=== PATIENT | male | born 1980 | race African-American/Black ===

== ENCOUNTER 2023-01-23 15:29 | Emergency (ER) | payer MEDICAID, SELFPAY ==
[2023-01-23 15:28] VITALS: BP 148/88; PULSE 63; RESP 16; TEMP 36.6; O2SAT 99
--- NOTE | 2023-01-23 15:36 | ECG_ITS ---
Measurements Intervals [place] Rate: 54 P: 51 VT: 137 QRS: 17 QRSD: 89 T: 31 QT: 436 QTc: 415 Interpretive Statements SINUS BRADYCARDIA BORDERLINE ECG NO PREVIOUS ECG AVAILABLE FOR COMPARISON Electronically Signed On 01-23-2023 16:10:03 CDT by Ryan Richard D.O.
[2023-01-23 16:40] LABS: Appearance Urine Clear (Clear); Bilirubin Urine Negative (Negative); Blood Urine Negative (Negative); Color Urine Yellow (Yellow); Glucose Urine UA Negative (Negative); Ketones Urine 1+ mg/dL (Negative); Leukocyte Esterase Ur Negative LEU/UL (Negative); Nitrate Urine Negative (Negative); Protein Urine Negative (Negative)
[2023-01-23 16:40] LABS: Basophils Percent Auto 0.6 % (0.2-1.2); Eosinophils Absolute Auto 0.1 K/mm3 (0-0.3); Eosinophils Percent Auto 1.3 % (0-4.4); Hematocrit 45.7 % (42.0-52.0); Immature Granulocyte Absolute 0.02 K/mm3 (0.00-0.031); Immature Granulocyte Percent A 0.3 % (0-0.5); Lymphocytes Absolute Auto 1.63 K/mm3 (0.9-3.2); Lymphocytes Percent Auto 22.9 % (18.3-44.2); Mean Corpuscular HGB Conc 32.8 g/dl (32-36); Mean Corpuscular Hemoglobin 31.9 pg (26-34); Mean Corpuscular Volume 97.2 fl (80-100); Mean Platelet Volume 9.2 fl (7.4-10.4); Monocytes Absolute Auto 0.5 K/mm3 (0.1-0.6); Monocytes Percent Auto 6.3 % (2.6-8.5); Neutrophils Absolute Auto 4.9 K/mm3 (1.3-6.7); Neutrophils Percent Auto 68.6 % (45.5-73.1); Platelet Count Result 278 k/mm3 (150-375); Red Cell Distribution Width 14.3 % (11.5-14.5); White Blood Count 7.1 K/mm3 (4.5-10.0)
[2023-01-23 16:49] LABS: Ethanol < 10 mg/dL (<10)
[2023-01-23 16:50] LABS: Add Urine Microscopic? NO
[2023-01-23 16:50] LABS: Alanine Aminotransferase 16 U/L (6-50); Albumin Level 4.4 g/dL (3.5-5.1); Alkaline Phosphatase 96 U/L (38-126); Anion Gap 3 mmol/L (8-16); Aspartate Amino Transferase 33 U/L (17-59); Bilirubin,Total 1.2 mg/dL (0.2-1.3); Blood Urea Nitrogen 15 mg/dL (9-20); Carbon Dioxide 30 mmol/L (22-30); Chloride 105 mmol/L (98-107); Estimated CRCL calculation 89 ml/min; Estimated Glomerular Filt Rate > 60; Glucose 83 mg/dL (65-110); Potassium 3.7 mmol/L (3.4-5.0); Sodium 138 mmol/L (137-145)
[2023-01-23 16:57] LABS: Amphetamine Screen Urine Negative (Negative); Barbiturate Screen Urine Negative (Negative); Benzodiazepines Screen Urine Negative (Negative); Cannabinoid Screen Urine Positive (Negative); Methadone Screen Urine Negative (Negative); Opiate Screen Urine Negative (Negative); Phencyclidine Screen Urine Negative (Negative)
[2023-01-23 17:07] LABS: Troponin I < 0.012 ng/mL (0.000-0.034)
[2023-01-23 17:10] LABS: Cocaine Screen Urine Positive (Negative)
[2023-01-23 17:15] LABS: Influenza A QL RT-PCR Negative (Negative); Influenza B QL RT-PCR Negative (Negative); RSV RNA, RT-PCR Negative (Negative); SARS-CoV-2 RNA PCR Negative (Negative)
--- NOTE | 2023-01-23 17:36 | ED.PSYCH ---
HPI - Psych General Chief Complaint: Psychiatric Symptoms Stated Complaint: SI Time Seen by Provider: 01/23/23 16:55 History of Present Illness HPI Narrative: Patient is a 42-year-old male presenting with suicidal ideation. Patient states that he has been struggling with a cocaine addiction for a while now. States that he always convinces himself that he will be able to quit but he has been unable to do so. States that he has been having thoughts of self-harm in the last several weeks due to his problems with addiction. States that he is finally heading a point that he feels like he needs help. States he has never been to rehab before. He denies current SI or HI. Denies hallucinations or paranoia. Denies further complaints. Related Data Allergies Allergy/AdvReac Type Severity Reaction Status Date / Time No Known Allergies Allergy Unknown Verified 01/23/23 15:33 Review of Systems Review of Systems: All systems reviewed & are unremarkable except as noted in HPI and below PMFSH Social History Social History Substance use type: marijuana and crack/cocaine Exam Narrative: GENERAL: Well-appearing, in no acute distress, pleasant and cooperative HEAD: Normocephalic, atraumatic. EYES: PERRLA and EOMI. ENT: Mucous membranes moist. NECK: Supple. CHEST: No respiratory distress. HEART: Regular rate and rhythm ABDOMEN: Nondistended EXTREMITIES: Normal range of motion. No edema. SKIN: Warm, dry, no rash. NEURO: No focal deficits. Alert and oriented x3. PSYCH: Intermittently tearful secondary to situation, no SI or HI Course Vital Signs Vital signs: Vital Signs Temperature 97.9 F 01/23/23 15:28 Pulse Rate 63 01/23/23 15:28 Respiratory Rate 16 01/23/23 15:28 Blood Pressure 148/88 H 01/23/23 15:28 Pulse Oximetry 99 01/23/23 15:28 Oxygen Delivery Room Air 01/23/23 15:28 Temperature 97.9 F 01/23/23 15:28 Pulse Rate 68 01/23/23 22:32 Respiratory Rate 18 01/23/23 22:32 Blood Pressure 128/78 01/23/23 22:32 Pulse Oximetry 100 01/23/23 22:32 Oxygen Delivery Room Air 01/23/23 15:28 MDM - Psych MDM Narrative Medical decision making narrative: Patient is a 42-year-old male presenting with suicidal ideation in the setting of ongoing cocaine use disorder. Vital stable. Exam remarkable for the above. Patient is currently denying SI and HI but he states that he would really like to get help for his addictions. Patient medically clear, crisis team called for evaluation. Patient is agreed with the safety plan, he will be going to rehab in the morning. He feels comfortable with this plan. Discharged in stable condition. Differential Diagnosis Differential diagnosis: Likely suicidal ideation, depression and other (Polysubstance use disorder) Medical Records Attestation: I reviewed the patient's medical records. Lab Data Attestation: I reviewed the patient's lab results. 01/23/23 16:29 01/23/23 16:29 Labs: Lab Results 01/23/23 01/23/23 Range/Units 16:29 16:30 WBC 7.1 (4.5-10.0) K/mm3 RBC 4.70 (4.6-6.20) M/mm3 Hgb 15.0 (14.0-18.0) g/dL Hct 45.7 (42.0-52.0) % MCV 97.2 (80-100) fl MCH 31.9 (26-34) pg MCHC 32.8 (32-36) g/dl RDW 14.3 (11.5-14.5) % Plt Count 278 (150-375) k/mm3 MPV 9.2 (7.4-10.4) fl Immature Gran % (Auto) 0.3 (0-0.5) % Neut % (Auto) 68.6 (45.5-73.1) % Lymph % (Auto) 22.9 (18.3-44.2) % [place] % (Auto) 6.3 (2.6-8.5) % Eos % (Auto) 1.3 (0-4.4) % Baso % (Auto) 0.6 (0.2-1.2) % Lymph # (Auto) 1.63 (0.9-3.2) K/mm3 [place] # (Auto) 0.5 (0.1-0.6) K/mm3 Eos # (Auto) 0.1 (0-0.3) K/mm3 Baso # (Auto) 0.0 (0.0-0.1) K/mm3 Abs Immat Gran (auto) 0.02 (0.00-0.031) K/mm3 Absolute Neuts (auto) 4.9 (1.3-6.7) K/mm3 Absolute Nucleated RBC 0.0 (0.0-0.012) K/mm3 Nucleated RBC % 0.0 (0.0-0.2) % Sodium 13
--- NOTE | 2023-01-23 19:32 | PC.NURSE ---
Assumed care of pt. Report from Cristofer Coy. Pt resting quietly per cart, blankets over head. Resp even and nonlabored. Awaiting dispo.
[2023-01-23 22:32] VITALS: BP 128/78; PULSE 68; RESP 18; O2SAT 100
== END 2023-01-23 22:33 | disposition home or self-care (01) ==
PROVIDERS: Emergency Medicine; Emergency Provider Emergency Medicine
DX: F14.20 Cocaine dependence, uncomplicated (principal); Z20.822 Contact with and (suspected) exposure to COVID-19; R00.1 Bradycardia, unspecified
CPT/HCPCS: 36415; 80053; 80307; 81003; 84443; 84484; 85025; 87637; 93005; 99284